=== PATIENT | male | born 1960 | race Caucasian/White ===

== ENCOUNTER 2016-03-12 01:56 | Emergency (ER) | payer OTHER ==
[~2016-03-12] VITALS: Ht 180.3 cm; Wt 88.5 kg
[~2016-03-12 01:56] MED LIST: ACETAMINOPHEN-1 EAC1 ORAL; ALBUTEROL SULF8.5 GM INH; AZITHROMYCIN250 MG ORAL; CLARITIN10 M2 ORAL; FLONASE1 SPRAYS NASAL; GUAIFENESIN-CO118 M1 ORAL; HYDROCHLOROTHIA25 MG ORAL; KEFLEX500 MG ORAL; LISINOPRIL20 MG ORAL; NORCO 5-325 TA1 EACH ORAL; NORVASC10 MG ORAL; NORVASC2.5 MG ORAL; ZITHROMAX250 MG ORAL; ZOFRAN4 MG ORAL
[2016-03-12] MEDS ORDERED: SPIRONOLACTONE25 MG ORAL (02:05)
[2016-03-12] MEDS ORDERED: FUROSEMIDE20 M1 ORAL (02:05)
[2016-03-12] MEDS ORDERED: Aspirin Baby 81mg ORAL ONE (02:15)
[2016-03-12 02:26] LABS: APPEARANCE,URINE CLEAR; KETONES,URINE NEGATIVE (NEGATIVE); LEUKOCYTE ESTERASE ,URINE 1+ (NEGATIVE); NITRITE,URINE NEGATIVE (NEGATIVE); PH,URINE 5 (4.5-8.0); PROTEIN,URINE 2+ (NEGATIVE); UROBILINOGEN,URINE 1 MG/DL (0.0-1.0)
[2016-03-12 02:37] VITALS: BP 147/96
[2016-03-12 02:38] LABS: MEAN CORPUSCULAR HGB CONC 33.6 G/DL (32.0-36.0); MEAN CORPUSCULAR VOLUME 83 FL (80-99); MEAN PLATELET VOLUME 8.3 FL (6.5-10.1); PLATELET COUNT 225 K/UL (150-450); RED BLOOD COUNT 5.56 M/UL (4.70-6.10); RED CELL DISTRIBUTION WIDTH 13.6 % (11.6-14.8); WHITE BLOOD COUNT 11.3 K/UL (4.8-10.8)
[2016-03-12 02:40] LABS: RBC,URINE 0-2 /HPF (0 - 0); WBC,URINE 0-2 /HPF (0 - 0)
[2016-03-12 02:41] LABS: CALCIUM OXALATE CRYSTALS,UR FEW /LPF; HYALINE CASTS, URINE 0-2 /LPF; SQUAMOUS EPITHELIAL CELL,UR FEW /LPF (NONE/OCC)
[2016-03-12 02:51] LABS: TROPONIN I < 0.30 ng/mL (<=0.30)
[2016-03-12 02:54] LABS: ALANINE AMINOTRANSFERASE 49 U/L (3-41); ALBUMIN/GLOBULIN RATIO 1.1 (1.0-2.7); ANION GAP 18 (5-15); ASPARTATE AMINO TRANSFERASE 44 U/L (5-40); CALCIUM 9.7 mg/dL (8.6-10.2); CARBON DIOXIDE 22 mEQ/L (20-30); CHLORIDE 96 mEQ/L (98-107); CREATININE 0.9 mg/dL (0.7-1.2); GLOMERULAR FILTRATION RATE > 60 mL/min (>60); HEMOLYSIS 26; POTASSIUM 4.9 mEQ/L (3.4-4.9); SODIUM 136 mEQ/L (135-145)
[2016-03-12 03:00] VITALS: BP 158/92
[2016-03-12 03:05] LABS: CKMB 10.6 ng/mL (< 6.7)
--- NOTE | 2016-03-12 03:20 | Emergency Room Report ---
History of Present Illness General Chief Complaint: Chest Pain Source: Patient Present Illness HPI Is a 55-year-old male with a history of cardiomyopathy and CHF. He presents with chief complaint of dizziness and shortness of breath. Worse when he walked 2 miles here. Denies any fever or chills. Said that he had nausea and vomiting. That he had chest pain. No radiation. Denies any complaint now. Allergies: Coded Allergies: NO KNOWN ALLERGIES (Unverified Allergy, Unknown, 01/29/15) Patient History Past Medical History: see triage record, old chart reviewed, HTN Past Surgical History: other Pertinent Family History: none Social History: Denies: smoking Immunizations: other Reviewed Nursing Documentation: PMH: Agreed, PSxH: Agreed Nursing Documentation-PMH Hx Hypertension: Yes - CHF Review of Systems Eye: Denies: blurred vision, eye pain ENT: Denies: ear pain, nose congestion, throat swelling Respiratory: Reports: shortness of breath, Denies: cough Cardiovascular: Reports: chest pain, Denies: palpitations Gastrointestinal: Denies: abdominal pain, diarrhea, nausea, vomiting Musculoskeletal: Denies: back pain, joint pain Skin: Denies: rash Neurological: Denies: headache, numbness Endocrine: Denies: increased thirst, increased urine Hematologic/Lymphatic: Denies: easy bruising All Other Systems: negative except mentioned in HPI Physical Exam Vital Signs Date Time Temp Pulse Resp B/P Pulse Ox O2 Delivery O2 Flow Rate FiO2 03/12/16 01:59 98.6 104 18 147/96 96 Room Air vitals showed hypertension Sp02 EP Interpretation: reviewed, normal General Appearance: well appearing, no apparent distress, alert Head: normocephalic, atraumatic Eyes: bilateral eye EOMI, bilateral eye PERRL ENT: hearing grossly normal, normal pharynx Neck: full range of motion, supple, no meningismus Respiratory: chest non-tender, lungs clear, normal breath sounds Cardiovascular #1: regular rate, rhythm, no murmur Gastrointestinal: normal bowel sounds, non tender, no mass, no organomegaly, no bruit, non-distended Musculoskeletal: back normal, gait/station normal, normal range of motion, other - His arms are covered in bruises from multiple IV sites. Also covered in markings from stickers and EKG leads. Psychiatric: mood/affect normal Skin: warm/dry Medical Decision Making Diagnostic Impression: Primary Impression: Chest pain Qualified Codes: R07.9 - Chest pain, unspecified Additional Impressions: HTN (hypertension) Qualified Codes: I10 - Essential (primary) hypertension Cardiomyopathy Qualified Codes: I42.9 - Cardiomyopathy, unspecified Proteinuria ER Course Patient presents with chest pain and shortness of breath. He has a known history of cardiomyopathy with ejection fraction of 35-40%. This is on a recent echocardiogram done at [facility]. He has been to multiple hospitals in the last month. He's been here several times. He was transferred to [facility] in January. He was also at [facility] on February 16 and transfer to [facility]. He then went to [facility]. He was admitted [facility] on February 25 and discharged on March 01. He had an angiogram done there which showed no blockage. I confirmed this by calling the hospital. Last week, he was at [place] and then [facility]. I suspect is anxiety component to this. May be a psychogenic component or Munchausen's. Troponin is negative. He is euvolemic on the chest x-ray. No evidence of fluid overloaded. BNP is at baseline. We'll discharge home. Told patient to take his blood pressure medication. Lab Results Impression labs unremarkable. EKG Diagnostic Results Rate: normal Rhythm: NSR ST Segments: no acute changes Rhythm Strip Diag. Results EP Interpretation: yes Rate: 98 Rhythm: NSR, no PVC's, no ectopy Chest X-Ray Diagnostic Results EP Interpretation: Yes Findings: no consolidation, no effusion, no pneumothorax, no acute cardiopulmonary disease, other - CM Number of Views: 1 Last Vital Signs Date Time Temp Pulse Resp B/P Pulse Ox O2 Delivery O2 Flow Rate FiO2 03/12/16 02:37 98.6 105 18 147/96 96 Room Air Status: improved Disposition: HOME, SELF-CARE Condition: Stable Referrals: [facility],REFERRING (PCP) Patient Instructions: Nonspecific Chest Pain Additional Instructions: Followup with your DrTawanna in 2-3 days. Return for any worsening of symptoms. LUZ ELENA MATTHEWS M.D. Mar 12, 2016 03:20
[2016-03-12 03:21] VITALS: BP 158/92
--- NOTE | 2016-03-12 11:08 | Diagnostic Imaging Report ---
Indication: Chest Pain Comparison: None A single view chest radiograph was obtained. Findings: Lungs are clear. Heart is mildly enlarged. Bones are slight osteopenic. Impression: No acute disease
--- NOTE | 2016-03-14 19:50 | Cardiology Report ---
APPROVED REPORT EKG Measurement Heart [id number] MI [id number] Sinus rhythm with 1st degree AV block Septal infarct, age undetermined Abnormal ECG
== END 2016-03-12 03:25 | disposition home or self-care (01) ==
LOC: EMR 02:10
DX: R07.9 Chest pain, unspecified (principal); I10 Essential (primary) hypertension; I50.9 Heart failure, unspecified
CPT/HCPCS: 36415; 71010; 80053; 80300; 81003; 82550; 82553; 83880; 84484; 85025; 93005; 99283